=== PATIENT | female | born 1985 | race Caucasian/White ===

== ENCOUNTER 2016-08-07 17:40 | Emergency (ER) | payer OTHER ==
--- NOTE | 2016-08-07 19:46 | ED ORDER SUMMARY ---
..... Patient: MARIAMA SCHWARTZ OrderSheet [facility] VisitID: [id number] [address] [place] [address] 31y, F Registration Date/Time: 08/07/2016 ORDER SHEET Weight: 61.2 kg (stated) Allergies: No Known Drug Allergy GENERAL ORDERS: POC - Urine hCG (18:34 08/07/2016 Shaunna Mejia) (Ack 18:34 TBergley) (18:49 OHernandez) MEDICATION ORDERS: IV FLUIDS: IV NS : initial bolus 1000 mL (1000 mL/hr), then none - for X1 (NOW) (18:33 08/07/2016 Shaunna Mejia) (Ack 18:40 MWinterer R.N.) (18:56 MWinterer R.N.) Toradol IV 30 mg (NOW) (18:33 08/07/2016 Shaunna Mejia) (Ack 18:40 MWinterer R.N.) (18:56 MWinterer R.N.) Reglan IV 10 mg (NOW) (18:33 08/07/2016 Shaunna Mejia) (Ack 18:40 MWinterer R.N.) (19:00 MWinterer R.N.) Decadron IV 10 mg (NOW) (18:33 08/07/2016 Shaunna Mejia) (Ack 18:40 MWinterer R.N.) (18:57 MWinterer R.N.) Benadryl IV 25 mg (NOW) (18:34 08/07/2016 Shaunna Mejia) (Ack 18:40 MWinterer R.N.) (18:59 MWinterer R.N.) ORDER SHEET NOTES: [Electronically signed by Jolene De La Cruz R.N. (19:58 08/07/2016)] [Electronically signed by Martinez Timmons Dr. (12:09 08/09/2016)] [Electronically locked/signed by Jolene De La Cruz R.N. (19:58 08/07/2016)]
--- NOTE | 2016-08-07 19:46 | ED CLINICAL REPORT ---
Clinical Report - Physicians/Mid Levels [facility] [address] [place] [address] 08/07/2016 17:42 Patient: MARIAMA SCHWARTZ Time Seen: 1824. Arrived- By private vehicle. Historian- patient. HISTORY OF PRESENT ILLNESS Is still present and worsening. Chief Complaint: HEADACHE. This started past few days. It was gradual in onset and has been constant but is not gone now. Patient was last known well (few days ago). Onset during rest. Located in the frontal region. No neck pain. Not located in the facial region. At its maximum, severity described as severe. When seen in the E.D., severity described as severe. Modifying factors: worsened by bright light and noise; relieved by nothing. The patient has had photophobia, nausea and vomiting. No preceding symptoms, blurred vision, numbness or weakness. No recent travel. Similar symptoms previously: Many times. Recent medical care: Not recently seen/assessed. REVIEW OF SYSTEMS No fever, chest pain or difficulty breathing. All systems otherwise negative, except as recorded above. PAST HISTORY See nurses notes. SOCIAL HISTORY Never smoker. No alcohol use or drug use. No recent travel. Is a local resident. ADDITIONAL NOTES The nursing notes have been reviewed. PHYSICAL EXAM Vital Signs: 08/07/2016 17:52 BP: 155/91. HR: 98. RR: 12. O2 saturation: 100%. Temp: 98.4 F. Pain level now: 6/10. Blood pressure normal. Oxygen saturation normal. Appearance: Alert. No acute distress. (non-toxic). Eyes: Pupils equal, round and reactive to light. Eyes normal inspection. (no papilledema. Normal appearing retinal vasculature). ENT: Ears normal. Nose normal. Pharynx normal. Neck: Normal inspection. Neck supple. No meningeal signs. CVS: Normal heart rate and rhythm. Heart sounds normal. Pulses normal. Respiratory: No respiratory distress. Breath sounds normal. Abdomen: Soft and nontender. No organomegaly. Skin: Skin warm and dry. Normal skin color. No rash. Normal skin turgor. Extremities: Extremities exhibit normal ROM. No lower extremity edema. Neuro: Oriented X 3. Alert. Mood/affect normal. Speech normal. Cranial nerves normal (as tested). No cerebellar findings. No motor deficit. No sensory deficit. Reflexes normal. PROGRESS AND PROCEDURES Course of Care: Patient is a pleasant 22-year-old femalewith past medical history significant for migraines presenting for evaluation of headache. Patient as been evaluated for SAH, increased ICP, meningitis, and space occupying lesion. Patients exam and history are not consistent with these entities. Patient is agreeable to treatment for headache. Medications have been ordered after reviewing allergies and intolerances. Patient will be reevaluated after the medications have been given. Patient was reevaluated and found to be significantly improved. Patient reports being able to return home and follow up with doctor. Repeat examination continues to be benign. I discussed with the patient workup, diagnosis, home care, follow-up, and return precautions. All questions have been answered. The patient expressed understanding of these instructions and was agreeable to them. Do not feel patient needs to be admitted to the hospital or require further ED workup/evaluation. Disposition: Discharged. Condition: good. CLINICAL IMPRESSION Acute headache. Moderate nausea with vomiting. INSTRUCTIONS Warnings: SEDATIVE MEDICATION: You were given sedative medication during your visit. Do not drive or operate dangerous machinery. GENERAL WARNINGS: Return or contact your physician immediately if your condition worsens or changes unexpectedly, if not improving as expected, or if other problems arise. SPECIFICALLY, return if you develop fever, vomiting, numbness, weakness, difficulty thinking, visual disturbances, fainting or extreme fatigue. Your Current Medications: CONTINUE TAKING THE FOLLOWING MEDICATIONS: Indomethacin Oral. Prescription Medications: Zofran (orally disintegrating tablets) 4 mg: take 1 orally every 8 hours as needed for nausea and vomiting. Dispense ten (10). No refill. Substitution is permissible. Follow-up: Return to the emergency department as needed. Follow up with your doctor in three days. Reason for referral: recheck today's concerns. Summary of care provided to patient via paper. Screening today revealed the patient's blood pressure to be in the normal range. The patient should follow up with a primary care provider for blood pressure management. Understanding of the discharge instructions verbalized by patient and family. (Electronically signed by Martinez Timmons Dr. 08/09/2016 12:09)
--- NOTE | 2016-08-07 19:46 | ED NURSING NOTES ---
Clinical Report - Nurses [facility] [place] [address] 08/07/2016 17:42 Patient: MARIAMA SCHWARTZ TRIAGE Acuity: LEVEL 4. Chief Complaint: MIGRAINE HEADACHE. Alert. No acute distress. SEPSIS SCREEN: Sepsis Screen. Negative (no infection suspected/documented). --17:54 Mayra Andres R.N. 17:52 08/07/16. BP: 155/91. HR: 98. RR: 12. O2 saturation: 100% on room air. Temp: 98.4 F (oral). Pain level now: 09/10. --17:54 Mayra Andres R.N. DEISI COMA SCORE: Deisi Coma Scale: 15- eyes open spontaneously (4); best verbal response- oriented x 4 (5); best motor response- obeys commands (6). --17:55 Mayra Andres R.N. Weight: 61.2 kg stated. Height/Length: 65 inches Per Patient. BMI: 22.5. --17:53 Mayra Andres R.N. Medications Indomethacin Oral. --17:58 Mayra Andres R.N. Allergies No Known Drug Allergy. --17:53 Mayra Andres R.N. Medication/allergy information source: the patient. --17:54 Mayra Andres R.N. History Arrived by private vehicle. Historian: patient. Accompanied by father. Primary physician (Gideon). This started today. She has had nausea and vomiting. PAST MEDICAL HX: Last normal menstrual period was 4 weeks ago. Sexual history - sexually active. FALL RISK ASSESSMENT: Fall risk assessment completed. No fall risk identified. NUTRITIONAL RISK ASSESSMENT: The nutritional risk assessment revealed no deficiencies. FUNCTIONAL ASSESSMENT: Functional assessment: no impairments noted. LEARNING NEEDS ASSESSMENT: The learning needs assessment revealed no barriers. SKIN INTEGRITY ASSESSMENT: Skin integrity risk assessment completed. No skin integrity risk identified. --17:54 Mayra Andres R.N. PROBLEMS: Migraine Headache. --17:53 Mayra Andres R.N. Interventions ID band on patient. To treatment room. --17:54 Mayra Andres R.N. PHYSICAL ASSESSMENT 17:55 08/07/16. Ambulatory to room. GENERAL / NEURO / PSYCH: Alert. Oriented X 4. Appears in no acute distress. Speech within normal limits. HEENT: No facial asymmetry noted. Pupils equal, round and reactive to light. RESPIRATORY: Respirations not labored. CVS: Capillary refill less than 2 seconds. GI / : Abdomen nontender. SKIN: Skin is warm and dry. --17:55 Mayra Andres R.N. NURSING PROGRESS NOTES 17:55 08/07/16. Lights dimmed. Two patient identifiers checked. Call light placed in reach. Side rails up x 1. Bed placed in lowest position. Brakes of bed on. Patient ready for evaluation- chart flagged and ED physician and PA notified. --17:55 Mayra Andres R.N. 18:45. Urine test negative. --18:55 Christy Parr 18:51 08/07/2016 Site #1 started via IV in the right antecubital space with an 20g angiocath, with aseptic technique and good blood return. Blood drawn: rainbow set. Labeled in the presence of the patient and sent to the lab. --18:56 Mayra Andres R.N. 18:56 08/07/2016 Started bag #1 1000 mL IV Fluids IV NS (Saline); at 1000 mL/hr over 1 hour(s) via site #1 via IV pump. Allergies verified and confirmed 5 rights. IV patency established. IV site checked: no pain, redness, or swelling. IV flushed thoroughly pre- and post-medication administration. --18:56 Mayra Andres R.N. 18:56 08/07/2016 Toradol IVP 30 mg given over 1 minute(s) via site #1. Allergies verified and confirmed 5 rights. IV patency established. IV site checked: no pain, redness, or swelling. IV flushed thoroughly pre- and post-medication administration. IVP given by RN. --18:56 Mayra Andres R.N. 18:57 08/07/2016 Decadron IVP 10 mg given over 3 minute(s) via site #1. Allergies verified and confirmed 5 rights. IV patency established. IV site checked: no pain, redness, or swelling. IV flushed thoroughly pre- and post-medication administration. IVP given by RN. --18:57 Mayra Andres R.N. 18:59 08/07/2016 Benadryl (DiphenhydrAMINE HCl) IVP 25 mg given over 1 minute(s) via site #1. Allergies verified, confirmed 5 rights and sedative warning given to the patient. IV patency established. IV site checked: no pain, redness, or swelling. IV flushed thoroughly pre- and post-medication administration. IVP given by RN. --18:59 Mayra Andres R.N. 19:00 08/07/2016 Reglan (Metoclopramide HCl) IVP 10 mg given over 2 minute(s) via site #1. Allergies verified and confirmed 5 rights. IV patency established. IV site checked: no pain, redness, or swelling. IV flushed thoroughly pre- and post-medication administration. IVP given by RN. --19:00 Mayra Andres R.N. 19:06 08/07/16. Care transferred and report given (ROBERT Fernández). --19:06 Mayra Andres R.N. DISPOSITION / DISCHARGE 19:56 08/07/2016 IV Fluids IV NS Discontinued: bag #1 completed upon discharge. Total amount infused: 1000 mL. IV patency established. IV site checked: no pain, redness, or swelling. IV flushed thoroughly. --19:56 Jolene De La Cruz R.N. 19:57 08/07/2016 Site #1 removed upon discharge. Catheter intact. Manual pressure and bandage applied. --19:57 Jolene De La Cruz R.N. Condition at departure: improved. No learning barriers present. Discharge instructions provided and reviewed with the family. Reviewed medication(s) side effects, precautions, dosing and course information. Patient verbalized understanding. Written instructions provided in Swazi. The patient was discharged home and accompanied by family. She left the Emergency Department ambulatory and via private vehicle. Family member driving. --19:58 Jolene De La Cruz R.N. 19:56 08/07/16. BP: 155/92 taken on the left arm, while lying. HR: 95 (regular and normal rate). RR: 18. O2 saturation: 100%. Temp: deferred. Pain level now: 0/10. --19:58 Jolene De La Cruz R.N. Departure time: 1952. --19:58 Jolene De La Cruz R.N. Locked/Released at 08/07/2016 19:58 by Jolene De La Cruz R.N.
--- NOTE | 2016-08-07 19:46 | ED ORDER SUMMARY ---
..... Patient: MARIAMA SCHWARTZ OrderSheet [facility] VisitID: [id number] [address] [place] [address] 31y, F Registration Date/Time: 08/07/2016 ORDER SHEET Weight: 61.2 kg (stated) Allergies: No Known Drug Allergy GENERAL ORDERS: POC - Urine hCG (18:34 08/07/2016 Shaunna Mejia) (Ack 18:34 TBergley) (18:49 OHernandez) MEDICATION ORDERS: IV FLUIDS: IV NS : initial bolus 1000 mL (1000 mL/hr), then none - for X1 (NOW) (18:33 08/07/2016 Shaunna Mejia) (Ack 18:40 MWinterer R.N.) (18:56 MWinterer R.N.) Toradol IV 30 mg (NOW) (18:33 08/07/2016 Shaunna Mejia) (Ack 18:40 MWinterer R.N.) (18:56 MWinterer R.N.) Reglan IV 10 mg (NOW) (18:33 08/07/2016 Shaunna Mejia) (Ack 18:40 MWinterer R.N.) (19:00 MWinterer R.N.) Decadron IV 10 mg (NOW) (18:33 08/07/2016 Shaunna Mejia) (Ack 18:40 MWinterer R.N.) (18:57 MWinterer R.N.) Benadryl IV 25 mg (NOW) (18:34 08/07/2016 Shaunna Mejia) (Ack 18:40 MWinterer R.N.) (18:59 MWinterer R.N.) ORDER SHEET NOTES: [Electronically signed by Jolene De La Cruz R.N. (19:58 08/07/2016)] [Electronically signed by Martinez Timmons Dr. (12:09 08/09/2016)] [Electronically locked/signed by Jolene De La Cruz R.N. (19:58 08/07/2016)]
--- NOTE | 2016-08-09 12:09 | ED DISCHARGE INSTRUCTIONS ---
Patient: MARIAMA SCHWARTZ General Instructions [facility] VisitID: [id number] [address] [place] [address] 31y, F Registration Date/Time: 08/07/2016 Acute headache. Moderate nausea with vomiting. INSTRUCTIONS Warnings: SEDATIVE MEDICATION: You were given sedative medication during your visit. Do not drive or operate dangerous machinery. GENERAL WARNINGS: Return or contact your physician immediately if your condition worsens or changes unexpectedly, if not improving as expected, or if other problems arise. SPECIFICALLY, return if you develop fever, vomiting, numbness, weakness, difficulty thinking, visual disturbances, fainting or extreme fatigue. Your Current Medications: CONTINUE TAKING THE FOLLOWING MEDICATIONS: Indomethacin Oral. Prescription Medications: Zofran (orally disintegrating tablets) 4 mg: take 1 orally every 8 hours as needed for nausea and vomiting. Dispense ten (10). No refill. Substitution is permissible. Follow-up: Return to the emergency department as needed. Follow up with your doctor in three days. Reason for referral: recheck today's concerns. Summary of care provided to patient via paper. Screening today revealed the patient's blood pressure to be in the normal range. The patient should follow up with a primary care provider for blood pressure management. Understanding of the discharge instructions verbalized by patient and family. ADDITIONAL INFORMATION Headache [Unspecified] The cause of your headache today is not clear, but it does not appear to be the sign of any serious illness. Under stress, some people tense the muscles of their shoulder, neck and scalp without knowing it. If this condition lasts long enough, a TENSION HEADACHE can occur. A MIGRAINE HEADACHE is caused by changes in blood flow to the brain. A migraine attack may be triggered by emotional stress, hormone changes during the menstrual cycle, oral contraceptives, alcohol use, certain foods containing tyramine, eye strain, weather changes, missing meals, lack of sleep or oversleeping. Other causes of headache include a viral illness with high fever, head injury with concussion, sinus, ear or throat infection, dental pain and TMJ (jaw joint) pain. More serious but less common causes of headache include stroke, brain hemorrhage, brain tumor, meningitis and encephalitis. Home Care: If you were given pain medicine for this headache, do not drive yourself home. Arrange for a ride, instead. When you get home, try to sleep. You should feel much better when you wake up. Apply heat to the back of your neck to relieve neck muscle spasm. Migraine headaches may respond best to an ice pack on the forehead or at the base of the skull. If you are having nausea or vomiting, follow a light diet until your headache is relieved. If you have a migraine type headache, use sunglasses when in the daylight or around bright indoor lighting until symptoms improve. Bright glaring light can worsen this kind of headache. Follow Up with your doctor if the headache is not better within the next 24 hours. If you have frequent headaches you should discuss a treatment plan with your primary care doctor. By being aware of the earliest signs of headache, and starting treatment right away, you may be able to stop the pain yourself. Get Prompt Medical Attention if any of the following occur: Worsening of your head pain or no improvement within 24 hours Repeated vomiting (unable to keep liquids down) Fever of 100.4F (38C) or higher, or as directed by your healthcare provider Stiff neck Extreme drowsiness, confusion or fainting Dizziness, vertigo (dizziness with spinning sensation) Weakness of an arm or leg or one side of the face Difficulty with speech or vision Ondansetron Oral disintegrating tablet What is this medicine? ONDANSETRON (on DAKOTAH se hima) is used to treat nausea and vomiting caused by chemotherapy. It is also used to prevent or treat nausea and vomiting after surgery. How should I use this medicine? These tablets are made to dissolve in the mouth. Do not try to push the tablet through the foil backing. With dry hands, peel away the foil backing and gently remove the tablet. Place the tablet in the mouth and allow it to dissolve, then swallow. While you may take these tablets with water, it is not necessary to do so. Talk to your junior mechanical engineer regarding the use of this medicine in children. Special care may be needed. What side effects may I notice from receiving this medicine? Side effects that you should report to your doctor or health pet caretaker as soon as possible: allergic reactions like skin rash, itching or hives, swelling of the face, lips, or tongue breathing problems dizziness fast or irregular heartbeat feeling faint or lightheaded, falls fever and chills swelling of the hands and feet tightness in the chest Side effects that usually do not require medical attention (report to your doctor or health pet caretaker if they continue or are bothersome): constipation or diarrhea headache What may interact with this medicine? Do not take this medicine with any of the following medications: -apomorphine -cisapride -dofetilide -dronedarone -pimozide -thioridazine -ziprasidone This medicine may also interact with the following medications: -carbamazepine -phenytoin -rifampicin -tramadol -other medicines that prolong the QT interval (cause an abnormal heart rhythm) What if I miss a dose? If you miss a dose, take it as soon as you can. If it is almost time for your next dose, take only that dose. Do not take double or extra doses. Where should I keep my medicine? Keep out of the reach of children. Store between 2 and 30 degrees C (36 and 86 degrees F). Throw away any unused medicine after the expiration date. What should I tell my health care provider before I take this medicine? They need to know if you have any of these conditions: heart disease history of irregular heartbeat liver disease low levels of magnesium or potassium in the blood an unusual or allergic reaction to ondansetron, granisetron, other medicines, foods, dyes, or preservatives or trying to get breast-feeding What should I watch for while using this medicine? Check with your doctor or health pet caretaker as soon as you can if you have any sign of an allergic reaction. You have been given the following additional information: Headache, Unspecified Ondansetron Oral disintegrating tablet (Electronically signed by Martinez Timmons Dr. 08/09/2016 12:09)
--- NOTE | 2016-08-09 12:09 | ED MED RECONCILIATION SUMMARY ---
Patient: MARIAMA SCHWARTZ Medication Reconciliation Report [facility] VisitID: [id number] [address] [place] [address] 31y, F Registration Date/Time: 08/07/2016 Weight: 61.2 kg Height/Length: 65 in. BMI: 22.5 ALLERGIES: No Known Drug Allergy The patient's Home Medications are listed below: CONTINUE TAKING THE FOLLOWING MEDICATIONS: Indomethacin Oral The source(s) of the original Home Medication information: patient The following Medications were given to the patient in the Emergency Department: IV NS IV Fluids bolus 0, then 1000 mL/hr, administered: 08/07/2016 6:56:00 PM Toradol [IVP] IVP 30 mg, administered: 08/07/2016 6:56:00 PM Decadron [IVP] IVP 10 mg, administered: 08/07/2016 6:57:00 PM Benadryl [IVP] IVP 25 mg, administered: 08/07/2016 6:59:00 PM Reglan [IVP] IVP 10 mg, administered: 08/07/2016 7:00:00 PM The following Medications were prescribed to the patient: Zofran (orally disintegrating tablets) 4 mg: take 1 orally every 8 hours as needed for nausea and vomiting. Dispense ten (10). No refill. Substitution is permissible. -- Martinez Timmons Dr.
--- NOTE | 2016-08-09 12:09 | ED DISCHARGE INSTRUCTIONS ---
Patient: MARIAMA SCHWARTZ General Instructions [facility] VisitID: [id number] [address] [place] [address] 31y, F Registration Date/Time: 08/07/2016 Acute headache. Moderate nausea with vomiting. INSTRUCTIONS Warnings: SEDATIVE MEDICATION: You were given sedative medication during your visit. Do not drive or operate dangerous machinery. GENERAL WARNINGS: Return or contact your physician immediately if your condition worsens or changes unexpectedly, if not improving as expected, or if other problems arise. SPECIFICALLY, return if you develop fever, vomiting, numbness, weakness, difficulty thinking, visual disturbances, fainting or extreme fatigue. Your Current Medications: CONTINUE TAKING THE FOLLOWING MEDICATIONS: Indomethacin Oral. Prescription Medications: Zofran (orally disintegrating tablets) 4 mg: take 1 orally every 8 hours as needed for nausea and vomiting. Dispense ten (10). No refill. Substitution is permissible. Follow-up: Return to the emergency department as needed. Follow up with your doctor in three days. Reason for referral: recheck today's concerns. Summary of care provided to patient via paper. Screening today revealed the patient's blood pressure to be in the normal range. The patient should follow up with a primary care provider for blood pressure management. Understanding of the discharge instructions verbalized by patient and family. ADDITIONAL INFORMATION Headache [Unspecified] The cause of your headache today is not clear, but it does not appear to be the sign of any serious illness. Under stress, some people tense the muscles of their shoulder, neck and scalp without knowing it. If this condition lasts long enough, a TENSION HEADACHE can occur. A MIGRAINE HEADACHE is caused by changes in blood flow to the brain. A migraine attack may be triggered by emotional stress, hormone changes during the menstrual cycle, oral contraceptives, alcohol use, certain foods containing tyramine, eye strain, weather changes, missing meals, lack of sleep or oversleeping. Other causes of headache include a viral illness with high fever, head injury with concussion, sinus, ear or throat infection, dental pain and TMJ (jaw joint) pain. More serious but less common causes of headache include stroke, brain hemorrhage, brain tumor, meningitis and encephalitis. Home Care: If you were given pain medicine for this headache, do not drive yourself home. Arrange for a ride, instead. When you get home, try to sleep. You should feel much better when you wake up. Apply heat to the back of your neck to relieve neck muscle spasm. Migraine headaches may respond best to an ice pack on the forehead or at the base of the skull. If you are having nausea or vomiting, follow a light diet until your headache is relieved. If you have a migraine type headache, use sunglasses when in the daylight or around bright indoor lighting until symptoms improve. Bright glaring light can worsen this kind of headache. Follow Up with your doctor if the headache is not better within the next 24 hours. If you have frequent headaches you should discuss a treatment plan with your primary care doctor. By being aware of the earliest signs of headache, and starting treatment right away, you may be able to stop the pain yourself. Get Prompt Medical Attention if any of the following occur: Worsening of your head pain or no improvement within 24 hours Repeated vomiting (unable to keep liquids down) Fever of 100.4F (38C) or higher, or as directed by your healthcare provider Stiff neck Extreme drowsiness, confusion or fainting Dizziness, vertigo (dizziness with spinning sensation) Weakness of an arm or leg or one side of the face Difficulty with speech or vision Ondansetron Oral disintegrating tablet What is this medicine? ONDANSETRON (on DAKOTAH se hima) is used to treat nausea and vomiting caused by chemotherapy. It is also used to prevent or treat nausea and vomiting after surgery. How should I use this medicine? These tablets are made to dissolve in the mouth. Do not try to push the tablet through the foil backing. With dry hands, peel away the foil backing and gently remove the tablet. Place the tablet in the mouth and allow it to dissolve, then swallow. While you may take these tablets with water, it is not necessary to do so. Talk to your journal box inspector regarding the use of this medicine in children. Special care may be needed. What side effects may I notice from receiving this medicine? Side effects that you should report to your doctor or health rn long term care as soon as possible: allergic reactions like skin rash, itching or hives, swelling of the face, lips, or tongue breathing problems dizziness fast or irregular heartbeat feeling faint or lightheaded, falls fever and chills swelling of the hands and feet tightness in the chest Side effects that usually do not require medical attention (report to your doctor or health rn long term care if they continue or are bothersome): constipation or diarrhea headache What may interact with this medicine? Do not take this medicine with any of the following medications: -apomorphine -cisapride -dofetilide -dronedarone -pimozide -thioridazine -ziprasidone This medicine may also interact with the following medications: -carbamazepine -phenytoin -rifampicin -tramadol -other medicines that prolong the QT interval (cause an abnormal heart rhythm) What if I miss a dose? If you miss a dose, take it as soon as you can. If it is almost time for your next dose, take only that dose. Do not take double or extra doses. Where should I keep my medicine? Keep out of the reach of children. Store between 2 and 30 degrees C (36 and 86 degrees F). Throw away any unused medicine after the expiration date. What should I tell my health care provider before I take this medicine? They need to know if you have any of these conditions: heart disease history of irregular heartbeat liver disease low levels of magnesium or potassium in the blood an unusual or allergic reaction to ondansetron, granisetron, other medicines, foods, dyes, or preservatives or trying to get breast-feeding What should I watch for while using this medicine? Check with your doctor or health rn long term care as soon as you can if you have any sign of an allergic reaction. You have been given the following additional information: Headache, Unspecified Ondansetron Oral disintegrating tablet (Electronically signed by Martinez Timmons Dr. 08/09/2016 12:09)
--- NOTE | 2016-08-09 12:09 | ED MAR SUMMARY ---
..... Medication Administration Record [facility] [address] [place] [address] Patient: MARIAMA SCHWARTZ Visit ID: [id number] 31y, F Weight: 61.2 kg Height/Length: 65 in BMI: 22.5 ALLERGIES: No Known Drug Allergy Start 18:56 08/07/2016 Mayra Andres R.N., Stop 19:56 08/07/2016 Jolene De La Cruz R.N. Medication Administered: IV NS (SALINE), Dose: IV Fluids over 1 hour(s), Rate: 1000 mL/hr, Dispensed: 1000 mL bag, Site: #1 right AC. Medication Ordered: IV NS : initial bolus 1000 mL (1000 mL/hr), then none - for X1 (NOW). Given 18:56 08/07/2016 Mayra Andres R.N. Medication Administered: TORADOL [IVP], Dose: 30 mg IVP over 1 minute(s), Site: #1 right AC. Medication Ordered: Toradol IV 30 mg (NOW). Given 18:57 08/07/2016 Mayra Andres R.N. Medication Administered: DECADRON [IVP], Dose: 10 mg IVP over 3 minute(s), Site: #1 right AC. Medication Ordered: Decadron IV 10 mg (NOW). Given 18:59 08/07/2016 Mayra Andres R.N. Medication Administered: BENADRYL [IVP] (DIPHENHYDRAMINE HCL), Dose: 25 mg IVP over 1 minute(s), Site: #1 right AC. Medication Ordered: Benadryl IV 25 mg (NOW). Given 19:00 08/07/2016 Mayra Andres R.N. Medication Administered: REGLAN [IVP] (METOCLOPRAMIDE HCL), Dose: 10 mg IVP over 2 minute(s), Site: #1 right AC. Medication Ordered: Reglan IV 10 mg (NOW).
--- NOTE | 2016-08-09 12:09 | ED MED RECONCILIATION SUMMARY ---
Patient: MARIAMA SCHWARTZ Medication Reconciliation Report [facility] VisitID: [id number] [address] [place] [address] 31y, F Registration Date/Time: 08/07/2016 Weight: 61.2 kg Height/Length: 65 in. BMI: 22.5 ALLERGIES: No Known Drug Allergy The patient's Home Medications are listed below: CONTINUE TAKING THE FOLLOWING MEDICATIONS: Indomethacin Oral The source(s) of the original Home Medication information: patient The following Medications were given to the patient in the Emergency Department: IV NS IV Fluids bolus 0, then 1000 mL/hr, administered: 08/07/2016 6:56:00 PM Toradol [IVP] IVP 30 mg, administered: 08/07/2016 6:56:00 PM Decadron [IVP] IVP 10 mg, administered: 08/07/2016 6:57:00 PM Benadryl [IVP] IVP 25 mg, administered: 08/07/2016 6:59:00 PM Reglan [IVP] IVP 10 mg, administered: 08/07/2016 7:00:00 PM The following Medications were prescribed to the patient: Zofran (orally disintegrating tablets) 4 mg: take 1 orally every 8 hours as needed for nausea and vomiting. Dispense ten (10). No refill. Substitution is permissible. -- Martinez Timmons Dr.
--- NOTE | 2016-08-09 12:09 | ED MAR SUMMARY ---
..... Medication Administration Record [facility] [address] [place] [address] Patient: MARIAMA SCHWARTZ Visit ID: [id number] 31y, F Weight: 61.2 kg Height/Length: 65 in BMI: 22.5 ALLERGIES: No Known Drug Allergy Start 18:56 08/07/2016 Mayra Andres R.N., Stop 19:56 08/07/2016 Jolene De La Cruz R.N. Medication Administered: IV NS (SALINE), Dose: IV Fluids over 1 hour(s), Rate: 1000 mL/hr, Dispensed: 1000 mL bag, Site: #1 right AC. Medication Ordered: IV NS : initial bolus 1000 mL (1000 mL/hr), then none - for X1 (NOW). Given 18:56 08/07/2016 Mayra Andres R.N. Medication Administered: TORADOL [IVP], Dose: 30 mg IVP over 1 minute(s), Site: #1 right AC. Medication Ordered: Toradol IV 30 mg (NOW). Given 18:57 08/07/2016 Mayra Andres R.N. Medication Administered: DECADRON [IVP], Dose: 10 mg IVP over 3 minute(s), Site: #1 right AC. Medication Ordered: Decadron IV 10 mg (NOW). Given 18:59 08/07/2016 Mayra Andres R.N. Medication Administered: BENADRYL [IVP] (DIPHENHYDRAMINE HCL), Dose: 25 mg IVP over 1 minute(s), Site: #1 right AC. Medication Ordered: Benadryl IV 25 mg (NOW). Given 19:00 08/07/2016 Mayra Andres R.N. Medication Administered: REGLAN [IVP] (METOCLOPRAMIDE HCL), Dose: 10 mg IVP over 2 minute(s), Site: #1 right AC. Medication Ordered: Reglan IV 10 mg (NOW).
== END 2016-08-07 19:53 | disposition home or self-care (01) ==
LOC: ED SRH 17:40
DX: R51 Headache (principal); R11.2 Nausea with vomiting, unspecified